=== PATIENT | female | born 1995 ===

== ENCOUNTER 2018-12-26 11:15 | Inpatient (IN) | payer OTHER ==
[~2018-12-26] VITALS: Ht 157.5 cm; Wt 58.1 kg
[2019-01-01] MEDS ORDERED: ULTRAM50 MG PO (12:30)
[2019-01-01] MEDS ORDERED: COLACE100 MG PO (12:30)
[2019-01-01] MEDS ORDERED: KEFLEX500 MG PO (12:30)
== END 2019-01-01 13:26 | DRG 743 ==
LOC: O/R 12-29 06:15 → OB/GYN 12-29 06:15 → SURH 12-29 08:30 → OB/GYN 12-29 13:05
PROVIDERS: ADMIT Obstetrics & Gynecology
PROC: 0UB90ZZ Excision of Uterus, Open Approach (ICD-10-PCS; principal; 2018-12-29 08:30)
DX: D25.1 Intramural leiomyoma of uterus (principal); D25.2 Subserosal leiomyoma of uterus; N83.11 Corpus luteum cyst of right ovary